=== PATIENT | female | born 1950 | race African-American/Black ===

== ENCOUNTER 2019-09-04 14:09 | Outpatient (CLI) | payer MEDICARE ==
--- NOTE | 2019-09-04 14:22 | RAD ---
2 view chest: [09/04/2019] Comparison:09/30/2015 HISTORY: Coronary arterial atherosclerosis FINDINGS: Midline sternotomy wires are present. Heart and mediastinal contours are unchanged. No pneu mothorax or pleural fluid. No focal consolidation or alveolar edema. IMPRESSION: No acute findings.
== END 2019-09-04 14:10 | disposition home or self-care (01) ==
LOC: RAD 14:09
PROVIDERS: ATTEND Thoracic Surgery (Cardiothoracic Vascular Surgery)
DX: I25.10 Atherosclerotic heart disease of native coronary artery without angina pectoris (principal)
CPT/HCPCS: 71046